=== PATIENT | female | born 1955 | race Caucasian/White ===

== ENCOUNTER 2020-05-08 08:25 | Outpatient (REF) | payer OTHER, SELFPAY ==
[2020-05-08 11:18] LABS: MANUAL DIFF FLAG NO
[2020-05-08 11:40] LABS: Basophils Percent Auto 0.4 % (0-2); Eosinophils Absolute Auto 0.1 X10*3/uL (0.0-0.4); Eosinophils Percent Auto 1.8 % (0-4); Hematocrit 41.3 % (37-47); Hemoglobin 13.2 g/dl (12.0-16.0); Imm Gran Abs Auto 0.01 X10*3/uL (0.00-0.03); Imm Gran Pct Auto 0.2 % (0.0-0.4); Lymphocytes Absolute Auto 1.4 X10*3/uL (1.2-4.9); Lymphocytes Percent Auto 26.9 % (20-40); Mean Corpuscular Hemoglobin 29.2 pg (27.0-33.0); Mean Corpuscular Volume 91.4 fL (80-98); Mean Platelet Volume 10.2 fL (9.4-12.3); Monocytes Absolute Auto 0.4 X10*3/uL (0.1-1.2); Monocytes Percent Auto 7.4 % (2-11); Neutrophils Absolute Auto 3.2 X10*3/uL (2.0-8.3); Neutrophils Percent Auto 63.3 % (45-73); Platelet Count 272 X10*3/uL (160-400); Red Blood Count 4.52 X10*6/uL (4.20-5.50); Red Cell Distribution Width 13.4 % (11.0-16.0)
[2020-05-08 12:03] LABS: Alanine Aminotransferase 96 U/L (0-31); Albumin Level 4.4 g/dL (3.5-5.0); Alkaline Phosphatase 127 U/L (39-117); Anion Gap 11 (12-20); Aspartate Amino Transferase 71 U/L (5-31); Blood Urea Nitrogen 15 mg/dL (9-16); Carbon Dioxide 30 mmol/L (22-29); Chloride 103 mmol/L (96-108); Cholesterol 183 mg/dL; Estimated Glomerular Filt Rate > 60; Glucose Fasting 106 mg/dL (60-99); HDL Cholesterol 67 mg/dL; LDL Cholesterol Calculated 104 mg/dl; Potassium 3.3 mmol/L (3.3-5.1); Sodium 141 mmol/L (135-145); Total Protein 7.3 g/dL (6.5-8.0); Triglycerides 63 mg/dL
[2020-05-08 12:18] LABS: Amphetamine Screen Urine Not Detected (Not Detect); Barbiturates, Urine Not Detected (Not Detect); Benzodiazepines Screen Urine Not Detected (Not Detect); Cannabinoid Screen Urine Not Detected (Not Detect); Cocaine Screen Urine Not Detected (Not Detect); Opiate Screen Urine POSITIVE (Not Detect); Phencyclidine Screen Urine Not Detected (Not Detect)
[2020-05-08 12:30] LABS: TSH reflex Free T4 1.07 uIU/mL (0.32-4.0)
[2020-05-09 08:20] LABS: HBS Num1 241.13 mIU/mL (0-7.99); HBc Num1 0.14 S/CO (0.00-0.79); HIV AB/AG Nonreactive (Nonreactive); HIV Num 1 0.07 S/CO (0.00-0.99); Hepatitis B Core Antibody Nonreactive (Nonreactive); ~Hepatitis B Surface Antibody REACTIVE (Nonreactive)
[2020-05-09 08:30] LABS: Syphilis Screen Nonreactive (Nonreactive)
[2020-05-09 08:58] LABS: HBsAGNum1 0.18 S/CO (0.00-0.99); Hepatitis B Surface Antigen Negative (Negative); ~HepC Num1 0.07 S/CO (0.00-0.79); ~Hepatitis C Antibody Nonreactive (Nonreactive)
[2020-05-09 22:57] LABS: C. trachomatis RNA TMA NOT DETECTED (NOT DETECTED); N. gonorrhoeae RNA TMA NOT DETECTED (NOT DETECTED)
[2020-05-10 03:41] LABS: Codeine, Ur 619 ng/mL (<50); Hydrocodone, Ur NEGATIVE ng/mL (<50); Hydromorphone, Ur 189 ng/mL (<50); Morphine, Ur >10000 ng/mL (<50); Norhydrocodone, Ur NEGATIVE ng/mL (<50); Noroxycodone, Ur NEGATIVE ng/mL (<50); Oxycodone, Ur NEGATIVE ng/mL (<50); Oxymorphone, Ur NEGATIVE ng/mL (<50)
== END 2020-05-08 08:26 | disposition home or self-care (01) ==
LOC: HO.WFDLDS 08:25
PROVIDERS: Visit Provider Family Medicine
DX: Z00.00 Encounter for general adult medical examination without abnormal findings (principal); Z11.3 Encounter for screening for infections with a predominantly sexual mode of transmission; Z11.4 Encounter for screening for human immunodeficiency virus [HIV]; F11.20 Opioid dependence, uncomplicated
CPT/HCPCS: 36415; 80053; 80061; 80307; 80364; 80365; 84443; 85025; 86704; 86706; 86780; 86803; 87340; 87389; 87491; 87591

== ENCOUNTER → 2020-05-29 09:33 | Outpatient (BNVA) | payer OTHER, SELFPAY | PROVIDERS: PCP Family Medicine; Visit Provider Internal Medicine | DX: F11.99 Opioid use, unspecified with unspecified opioid-induced disorder (principal); Z72.89 Other problems related to lifestyle | CPT/HCPCS: 80305 ==

== ENCOUNTER → 2020-06-06 10:06 | Outpatient (BNVA) | payer OTHER, SELFPAY | PROVIDERS: Visit Provider Internal Medicine ==

== ENCOUNTER → 2020-06-08 11:30 | Outpatient (BNVA) | payer OTHER, SELFPAY | PROVIDERS: Visit Provider Internal Medicine ==

== ENCOUNTER → 2020-06-12 09:41 | Outpatient (BNVA) | payer OTHER, SELFPAY | PROVIDERS: PCP Family Medicine; Visit Provider Internal Medicine | DX: Z51.81 Encounter for therapeutic drug level monitoring (principal) | CPT/HCPCS: 80305 ==

== ENCOUNTER → 2020-06-19 09:15 | Outpatient (BNVA) | payer OTHER, SELFPAY | PROVIDERS: PCP Family Medicine; Visit Provider Internal Medicine | DX: Z51.81 Encounter for therapeutic drug level monitoring (principal) | CPT/HCPCS: 80305 ==

== ENCOUNTER → 2020-06-26 09:41 | Outpatient (BNVA) | payer OTHER, SELFPAY | PROVIDERS: PCP Family Medicine; Visit Provider Internal Medicine | DX: F11.99 Opioid use, unspecified with unspecified opioid-induced disorder (principal) | CPT/HCPCS: 80305 ==

== ENCOUNTER → 2020-07-04 09:05 | Outpatient (BNVA) | payer OTHER, SELFPAY | PROVIDERS: PCP Family Medicine; Visit Provider Internal Medicine | DX: F11.99 Opioid use, unspecified with unspecified opioid-induced disorder (principal) | CPT/HCPCS: 80305 ==

== ENCOUNTER → 2020-07-11 09:03 | Outpatient (BNVA) | payer OTHER, SELFPAY | PROVIDERS: PCP Family Medicine; Visit Provider Internal Medicine | DX: Z51.81 Encounter for therapeutic drug level monitoring (principal) | CPT/HCPCS: 80305 ==

== ENCOUNTER → 2020-07-18 09:00 | Outpatient (BNVA) | payer OTHER, SELFPAY | PROVIDERS: PCP Family Medicine; Visit Provider Internal Medicine | DX: F11.99 Opioid use, unspecified with unspecified opioid-induced disorder (principal) | CPT/HCPCS: 80305 ==

== ENCOUNTER → 2020-07-25 09:04 | Outpatient (BNVA) | payer OTHER, SELFPAY | PROVIDERS: PCP Family Medicine; Visit Provider Internal Medicine | DX: F11.99 Opioid use, unspecified with unspecified opioid-induced disorder (principal) | CPT/HCPCS: 80305 ==

== ENCOUNTER 2020-08-02 08:59 | Outpatient (REF) | payer OTHER, SELFPAY ==
--- NOTE | ~2020-08-02 | MM_ITS ---
EXAMINATION: MM SCREENING DIGITAL BREAST TOMOSYNTHESIS, BILATERAL CLINICAL INFORMATION: Screening. Asymptomatic. The lifetime risk of breast cancer based on the Tyrer-Cuzick Model is 4.3%. COMPARISON: Mammography: August 31, 2018 and studies dating back to March 2011 TECHNIQUE: Digital breast tomosynthesis is performed in both the craniocaudal and mediolateral oblique views along with computer-aided detection (CAD). Synthesized 2D images are generated from the tomosynthesis. FINDINGS: The breasts are heterogeneously dense, which may obscure small masses (ACR BI-RADS breast composition Category c). There are no significant masses, abnormal calcifications, or other abnormalities. MM/MM tomosynthesis screening BI IMPRESSION: There are no significant changes from prior study. ASSESSMENT: BI-RADS 1: Negative RECOMMENDATION: Routine annual mammography screening. This patient's information was entered into a reminder system with a target due date for their next mammogram.
== END 2020-08-02 09:00 | disposition home or self-care (01) ==
LOC: HO.MAMMO 08:59
PROVIDERS: Visit Provider Family Medicine
DX: Z12.31 Encounter for screening mammogram for malignant neoplasm of breast (principal)
CPT/HCPCS: 77063; 77067

== ENCOUNTER → 2020-08-09 09:13 | Outpatient (BNVA) | payer OTHER, SELFPAY | PROVIDERS: PCP Family Medicine; Visit Provider Internal Medicine | DX: Z51.81 Encounter for therapeutic drug level monitoring (principal) | CPT/HCPCS: 80305 ==

== ENCOUNTER → 2020-08-28 09:05 | Outpatient (BNVA) | payer OTHER, SELFPAY | PROVIDERS: PCP Nurse Practitioner Family; Visit Provider Internal Medicine | DX: Z51.81 Encounter for therapeutic drug level monitoring (principal) | CPT/HCPCS: 80305 ==

== ENCOUNTER → 2020-09-17 09:44 | Outpatient (BNVA) | payer OTHER, SELFPAY | PROVIDERS: Visit Provider Internal Medicine | DX: F11.99 Opioid use, unspecified with unspecified opioid-induced disorder (principal) | CPT/HCPCS: 80305 ==

== ENCOUNTER 2020-10-15 11:01 | Outpatient (REF) | payer OTHER, SELFPAY ==
[2020-10-19 07:40] LABS: Fentanyl, Ur 299.3
[2020-10-19 07:43] LABS: Buprenorphine 18; Norbuprenorphine 72
[2020-10-19 07:44] LABS: Naloxone 79
== END 2020-10-15 11:02 | disposition home or self-care (01) ==
LOC: HO.LAB 11:01
PROVIDERS: Visit Provider Internal Medicine
DX: Z51.81 Encounter for therapeutic drug level monitoring (principal); F11.99 Opioid use, unspecified with unspecified opioid-induced disorder
CPT/HCPCS: 80305; 80348; 80354; 80362; 80364; 80365

== ENCOUNTER → 2020-11-06 09:50 | Outpatient (BNVA) | payer OTHER, SELFPAY | PROVIDERS: Visit Provider Internal Medicine | DX: Z51.81 Encounter for therapeutic drug level monitoring (principal); F11.99 Opioid use, unspecified with unspecified opioid-induced disorder | CPT/HCPCS: 80305 ==

== ENCOUNTER → 2020-11-13 10:27 | Outpatient (BNVA) | payer OTHER, SELFPAY | PROVIDERS: Visit Provider Internal Medicine | DX: Z51.81 Encounter for therapeutic drug level monitoring (principal) ==

== ENCOUNTER 2020-11-21 09:49 | Outpatient (REF) | payer OTHER, SELFPAY ==
[2020-11-21 11:54] LABS: Fentanyl, urine POSITIVE (Not Detect)
== END 2020-11-21 09:50 | disposition home or self-care (01) ==
LOC: HO.LAB 09:49
PROVIDERS: Visit Provider Internal Medicine
DX: F11.20 Opioid dependence, uncomplicated (principal)
CPT/HCPCS: 36415; 80305; 80307

== ENCOUNTER 2020-11-27 09:53 | Outpatient (REF) | payer OTHER, SELFPAY ==
[2020-11-29 08:57] LABS: Fentanyl, urine POSITIVE (Not Detect)
== END 2020-11-27 09:54 | disposition home or self-care (01) ==
LOC: HO.LAB 09:53
PROVIDERS: PCP Family Medicine; Visit Provider Internal Medicine
DX: Z51.81 Encounter for therapeutic drug level monitoring (principal); F11.99 Opioid use, unspecified with unspecified opioid-induced disorder; Z79.899 Other long term (current) drug therapy
CPT/HCPCS: 80305; 80307; 80348; 80362

== ENCOUNTER 2020-12-24 10:38 | Outpatient (REF) | payer OTHER, SELFPAY ==
[2020-12-24 17:48] LABS: Fentanyl, urine POSITIVE (Not Detect)
--- NOTE | 2021-01-09 10:55 | MHC.RECOVSUP ---
Recovery Support note: This technical document writer conducted a follow up call to check in on this patient at the request of [facility] staff. Patient reports she is having difficulty transitioning to Suboxone. Patient was in precipitated withdrawal at the time of the call. Encouraged patient to continue taking the Suboxone as prescribed and to not use heroin. Patient reports life stressors related to her work and health and states she hides her use from her family and she feels isolated. Patient reports she cannot go to detox due to family and work. Patient is open to being referred to a Lead Pharmacy Technician for ongoing support. Encouraged patient to contact [facility] for additional guidance on Suboxone initiation of needed.
== END 2020-12-24 10:39 | disposition home or self-care (01) ==
LOC: HO.LNP 10:38
PROVIDERS: Visit Provider Internal Medicine
DX: F11.99 Opioid use, unspecified with unspecified opioid-induced disorder (principal); Z51.81 Encounter for therapeutic drug level monitoring
CPT/HCPCS: 80305; 80307

== ENCOUNTER 2021-01-01 11:32 | Outpatient (REF) | payer OTHER, SELFPAY ==
[2021-01-01 13:25] LABS: Fentanyl, urine POSITIVE (Not Detect)
== END 2021-01-01 11:33 | disposition home or self-care (01) ==
LOC: HO.LAB 11:32
PROVIDERS: Visit Provider Internal Medicine
DX: F11.99 Opioid use, unspecified with unspecified opioid-induced disorder (principal); Z79.899 Other long term (current) drug therapy
CPT/HCPCS: 80305; 80307; 99212

== ENCOUNTER → 2021-01-07 10:56 | Outpatient (BNVA) | payer OTHER, SELFPAY | PROVIDERS: Visit Provider Internal Medicine | DX: Z51.81 Encounter for therapeutic drug level monitoring (principal); F11.90 Opioid use, unspecified, uncomplicated | CPT/HCPCS: 80305; 99212 ==

== ENCOUNTER 2021-05-23 09:03 | Outpatient (REF) | payer OTHER, SELFPAY ==
[2021-05-23 11:29] LABS: Hematocrit 41.7 % (37.0-47.0); Hemoglobin 13.3 g/dl (12.0-16.0); Mean Corpuscular HGB Conc 31.9 g/dl (31.0-35.0); Mean Corpuscular Hemoglobin 29.6 pg (27.0-33.0); Mean Corpuscular Volume 92.7 fL (80.0-98.0); Mean Platelet Volume 10.3 fL (9.4-12.3); Platelet Count 268 X10*3/uL (160-400); Red Cell Distribution Width 13.3 % (11.0-16.0); White Blood Count 4.6 X10*3/uL (4.8-10.8)
[2021-05-23 11:36] LABS: Alanine Aminotransferase 33 U/L (0-31); Albumin Level 4.4 g/dL (3.5-5.0); Alkaline Phosphatase 88 U/L (39-117); Anion Gap 14 (12-20); Aspartate Amino Transferase 28 U/L (5-31); Bilirubin Total 0.5 mg/dL (0.0-1.0); Blood Urea Nitrogen 11 mg/dL (9-16); Calcium 9.4 mg/dL (8.4-10.2); Carbon Dioxide 27 mmol/L (22-29); Chloride 103 mmol/L (96-108); Cholesterol 191 mg/dL; Estimated Glomerular Filt Rate > 60; Glucose Fasting 128 mg/dL (60-99); HDL Cholesterol 69 mg/dL; LDL Cholesterol Calculated 109 mg/dl; Potassium 3.3 mmol/L (3.3-5.1); Sodium 141 mmol/L (135-145); Total Protein 7.5 g/dL (6.5-8.0); Triglycerides 68 mg/dL
[2021-05-23 12:38] LABS: TSH reflex Free T4 1.23 uIU/mL (0.32-4.0)
[2021-05-23 15:00] LABS: Appearance Urine HAZY; Color Urine YELLOW; Glucose Urine UA NEG (NEG); Leukocyte Esterase Urine TRACE (NEG); Nitrite Urine NEG (NEG); Specific Gravity - Urine 1.015 (1.005-1.025); Urine Blood TRACE (NEG); Urine Ketones NEG (NEG); Urine Protein NEG (NEG-TRACE)
[2021-05-23 15:03] LABS: Amphetamine Screen Urine Not Detected (Not Detect); Barbiturates, Urine Not Detected (Not Detect); Benzodiazepines Screen Urine Not Detected (Not Detect); Cannabinoid Screen Urine Not Detected (Not Detect); Cocaine Screen Urine Not Detected (Not Detect); Fentanyl, urine POSITIVE (Not Detect); Opiate Screen Urine Not Detected (Not Detect); Phencyclidine Screen Urine Not Detected (Not Detect)
[2021-05-23 15:13] LABS: Bacteria Urine TRACE /LPF; Calcium Oxalate Crystals Urine TRACE /LPF; Squamous Epithelial Cell Urine 2+ /LPF; WBC Urine 0-2 /HPF (0-4)
== END 2021-05-23 09:04 | disposition home or self-care (01) ==
LOC: HO.WFDLDS 09:03
PROVIDERS: Visit Provider Hospitalist
DX: Z00.00 Encounter for general adult medical examination without abnormal findings (principal); F11.99 Opioid use, unspecified with unspecified opioid-induced disorder
CPT/HCPCS: 36415; 80053; 80061; 80307; 81001; 81003; 84443; 85027

== ENCOUNTER 2021-06-05 10:03 | Outpatient (REF) | payer OTHER, SELFPAY ==
[2021-06-05 19:10] LABS: Fentanyl, urine POSITIVE (Not Detect)
== END 2021-06-05 10:04 | disposition home or self-care (01) ==
LOC: HO.LNP 10:03
PROVIDERS: Visit Provider Internal Medicine
DX: F11.20 Opioid dependence, uncomplicated (principal)
CPT/HCPCS: 80305; 80307; 99212

== ENCOUNTER 2021-07-29 11:16 | Outpatient (REF) | payer OTHER, SELFPAY ==
[2021-07-29 12:01] LABS: Amphetamine Screen Urine Not Detected (Not Detect); Barbiturates, Urine Not Detected (Not Detect); Benzodiazepines Screen Urine Not Detected (Not Detect); Cannabinoid Screen Urine Not Detected (Not Detect); Cocaine Screen Urine Not Detected (Not Detect); Fentanyl, urine POSITIVE (Not Detect); Opiate Screen Urine POSITIVE (Not Detect); Phencyclidine Screen Urine Not Detected (Not Detect)
== END 2021-07-29 11:17 | disposition home or self-care (01) ==
LOC: HO.LNP 11:16
PROVIDERS: Visit Provider Hospitalist
DX: F11.20 Opioid dependence, uncomplicated (principal); Z91.14 Patient's other noncompliance with medication regimen
CPT/HCPCS: 80307

== ENCOUNTER 2021-08-06 08:09 | Outpatient (REF) | payer OTHER, SELFPAY | END 2021-08-06 08:10 | disposition home or self-care (01) | LOC: HO.MAMMO 08:09 | PROVIDERS: Visit Provider Family Medicine | DX: Z13.89 Encounter for screening for other disorder (principal) ==

== ENCOUNTER 2021-08-15 09:16 | Outpatient (REF) | payer OTHER, SELFPAY ==
--- NOTE | ~2021-08-15 | MM_ITS ---
EXAMINATION: MM SCREENING DIGITAL BREAST TOMOSYNTHESIS, BILATERAL CLINICAL INFORMATION: Screening. Asymptomatic. The lifetime risk of breast cancer based on the Tyrer-Cuzick Model is 5.6%. COMPARISON: Mammography: August 02, 2020 and studies dating back to March 20, 2011 TECHNIQUE: Digital breast tomosynthesis is performed in both the craniocaudal and mediolateral oblique views along with computer-aided detection (CAD). Synthesized 2D images are generated from the tomosynthesis. FINDINGS: The breasts are heterogeneously dense, which may obscure small masses (ACR BI-RADS breast composition Category c). There are no significant masses, abnormal calcifications, or other abnormalities. MM/MM tomosynthesis screening BI IMPRESSION: There are no significant changes from prior study. ASSESSMENT: BI-RADS 1: Negative RECOMMENDATION: Routine annual mammography screening. This patient's information was entered into a reminder system with a target due date for their next mammogram.
== END 2021-08-15 09:17 | disposition home or self-care (01) ==
LOC: HO.MAMMO 09:16
PROVIDERS: Visit Provider Family Medicine
DX: Z12.31 Encounter for screening mammogram for malignant neoplasm of breast (principal)
CPT/HCPCS: 77063; 77067

== ENCOUNTER → 2021-08-27 10:02 | Outpatient (BNVA) | payer OTHER, SELFPAY | PROVIDERS: PCP Hospitalist; Visit Provider Internal Medicine | DX: Z51.81 Encounter for therapeutic drug level monitoring (principal); F11.20 Opioid dependence, uncomplicated | CPT/HCPCS: 80305 ==

== ENCOUNTER → 2021-09-27 10:38 | Outpatient (BNVA) | payer OTHER, SELFPAY | PROVIDERS: Visit Provider Internal Medicine | DX: Z51.81 Encounter for therapeutic drug level monitoring (principal); Z79.899 Other long term (current) drug therapy | CPT/HCPCS: 80305 ==

== ENCOUNTER → 2021-10-29 10:35 | Outpatient (BNVA) | payer OTHER, SELFPAY | PROVIDERS: PCP Hospitalist; Visit Provider Nurse Practitioner Psychiatric/Mental Health | DX: F11.20 Opioid dependence, uncomplicated (principal); Z51.81 Encounter for therapeutic drug level monitoring; Z79.899 Other long term (current) drug therapy | CPT/HCPCS: 80305 ==

== ENCOUNTER → 2021-11-13 10:53 | Outpatient (BNVA) | payer OTHER, SELFPAY | PROVIDERS: PCP Hospitalist; Visit Provider Nurse Practitioner Psychiatric/Mental Health | DX: F11.20 Opioid dependence, uncomplicated (principal); Z51.81 Encounter for therapeutic drug level monitoring; Z79.899 Other long term (current) drug therapy | CPT/HCPCS: 80305 ==

== ENCOUNTER 2022-10-19 16:58 | Emergency (ER) | payer OTHER, SELFPAY ==
--- NOTE | ~2022-10-19 | CT_ITS ---
EXAMINATION: CT ABDOMEN AND PELVIS WITH CONTRAST CLINICAL INFORMATION: Abdominal pain. COMPARISON: CT abdomen/pelvis 04/13/2006. TECHNIQUE: Multidetector volumetric images were obtained from the superior aspect of the liver through the pubic symphysis following administration 85 mL of Omnipaque 350 intravenous contrast. Sagittal and coronal reformatted images were obtained on the technologist's workstation. Oral contrast: No This CT examination was performed using dose optimization techniques as appropriate, variously including the following: *Automated exposure control *Adjustment of mA and/or kV according to patient size (this includes techniques or standardized protocols for targeted exams where dose is matched to indication/reason for exam; i.e. extremities or head) *Use of iterative reconstruction technique DLP: 607 mGy-cm FINDINGS: LUNG BASES: Bilateral platelike opacities favored to represent subsegmental atelectases or scarring. Scattered cystic changes, similar compared to 2006. LIVER, GALLBLADDER, AND BILIARY TREE: Increased size of heterogeneous liver lesion in the right hepatic lobe measuring 1.7 cm image 11 series 3, previously 0.6 cm on 04/13/2006. The liver is normal in size, shape and attenuation. Moderate to severe intra and extrahepatic biliary ductal dilatation is not significantly changed compared to 04/13/2006. The common bile duct measures up to 1.5 cm in diameter. PANCREAS: No peripancreatic free fluid or fat stranding. No main ductal dilatation. SPLEEN: Unremarkable. ADRENAL GLANDS: Unremarkable. KIDNEYS AND URETERS: The kidneys are normal in size, shape, and attenuation. No hydronephrosis, hydroureter, or calculi seen. No perinephric stranding. BLADDER: Unremarkable. GASTROINTESTINAL TRACT: The stomach and the small bowel are nondilated. Appendix is not identified, however there are no regional inflammatory changes to suspect acute appendicitis. Large amount of stool throughout the colon. No significant pericolonic fat stranding/free fluid. No evidence of bowel obstruction. ABDOMINAL WALL: Small fat-containing umbilical hernias. LYMPH NODES: No lymphadenopathy. VASCULAR: Normal caliber abdominal aorta. PELVIC VISCERA: Normal CT appearance of the uterus and adnexa. OSSEOUS STRUCTURES: Degenerative changes of the spine with prominent endplate sclerosis and associated vacuum disc phenomena at L4-L5. Increased sclerosis of the pubic symphysis suggesting osteitis pubis. No acute or aggressive appearing osseous abnormalities. CT/CT abdomen pelvis w IV con IMPRESSION: 1. Large amount of stool in the colon suggesting constipation. 2. Increased size of a heterogeneous liver lesion in the right hepatic lobe. Recommend further evaluation with an MR of the abdomen with and without intravenous contrast. 3. Moderate to severe intra and extrahepatic biliary ductal dilatation is not significantly changed compared to 04/13/2006.
[2022-10-19 17:36] VITALS: BP 143/94; PULSE 65; RESP 18; TEMP 36; O2SAT 98; BMI 30.2
[2022-10-19 18:27] LABS: MANUAL DIFF FLAG NO
[2022-10-19 18:35] LABS: Appearance Urine Clear; Color Urine Yellow; Glucose Urine UA Negative (Negative); Leukocyte Esterase Urine Trace (Negative); Nitrite Urine Negative (Negative); PH 6.5 (5.0-9.0); Specific Gravity - Urine <= 1.005 (1.005-1.025); UMIC TRIGGER UACC YES; Urine Blood Negative (Negative); Urine Ketones Negative (Negative); Urine Protein Negative (Neg-Trace)
[2022-10-19 18:54] LABS: Bacteria Urine None Seen (None Seen); Hyaline Casts Urine 0-2 /LPF (0-2); RBC Urine 0-2 /HPF (0-2); Squamous Epithelial Cell Urine 0-2 /HPF (0-2); WBC Urine 0-5 /HPF (0-5)
[2022-10-19 18:58] LABS: Basophils Percent Auto 0.4 % (0-2); Eosinophils Percent Auto 0.4 % (0-4); Imm Gran Abs Auto 0.04 X10*3/uL (0.00-0.03); Imm Gran Pct Auto 0.9 % (0.0-0.4); Lymphocytes Percent Auto 21.7 % (20-40); Mean Corpuscular HGB Conc 31.7 g/dl (31.0-35.0); Mean Corpuscular Hemoglobin 29.5 pg (27.0-33.0); Mean Corpuscular Volume 93.2 fL (80.0-98.0); Mean Platelet Volume 9.5 fL (9.4-12.3); Monocytes Absolute Auto 0.3 X10*3/uL (0.1-1.2); Monocytes Percent Auto 7.1 % (2-11); Neutrophils Absolute Auto 3.2 x10*3/uL (2.0-8.3); Neutrophils Percent Auto 69.5 % (45-73); Platelet Count 263 X10*3/uL (160-400); Red Cell Distribution Width 13.2 % (11.0-16.0); White Blood Count 4.7 X10*3/uL (4.8-10.8)
[2022-10-19 19:09] LABS: Alanine Aminotransferase 29 U/L (0-31); Albumin Level 4.5 g/dL (3.5-5.0); Alkaline Phosphatase 124 U/L (39-117); Anion Gap 14 (12-20); Aspartate Amino Transferase 23 U/L (5-31); Bilirubin Total 0.3 mg/dL (0.0-1.0); Blood Urea Nitrogen 9 mg/dL (9-16); Calcium 9.5 mg/dL (8.4-10.2); Carbon Dioxide 31 mmol/L (22-29); Chloride 103 mmol/L (96-108); Creatinine Clr Calc Pharmacy 79.1; Estimated Glomerular Filt Rate > 60; Glucose Random 94 mg/dL (60-115); Lipase 37 U/L (8-78); Potassium 3.7 mmol/L (3.3-5.1); Sodium 144 mmol/L (135-145); Total Protein 7.8 g/dL (6.5-8.0)
[2022-10-19 20:00] VITALS: BP 158/85; PULSE 77; RESP 18; TEMP 36.8; O2SAT 97
--- NOTE | 2022-10-19 20:55 | ED_ITS ---
HPI - General Adult General Chief complaint: Abdominal Pain Stated complaint: abd pain Time Seen by Provider: 10/19/22 20:48 Source: patient Mode of arrival: ambulatory Limitations: no limitations History of Present Illness HPI narrative: 66 y/o F with PMHx of constipation, opioid use disorder, depression and hypot hyroidism presents with 3 weeks of lower abdominal pain. She reports that the pain has been dull, non-radiating and constant. It seems to worsen when she moves and nothing has improved her pain. She denies fevers, chills, chest pain, shortness of breath, nausea, vomiting, constipation or diarrhea. She has been having normal bowel movements and had a BM this morning. She has been postmenopausal since age 52 and denies any vaginal bleeding or discharge. She had her gallbladder previously removed. Onset (ago): week(s) Location: abdomen Radiation: non-radiation Quality: aching and dull Relieving factors: none Exacerbating factors: movement Associated symptoms: denies other symptoms Treatments prior to arrival: none Related Data Previous Rx's Medication Instructions Recorded blood pressure test kit-medium #1 ea 05/23/21 clonidine HCl 0.1 mg tablet 0.1 mg PO TID 7 days #21 tabs 06/05/21 hydroxyzine pamoate 25 mg capsule 25 mg PO TID PRN itching 7 days 06/05/21 (Vistaril) #21 caps buprenorphine 8 mg-naloxone 2 mg 2 film sublingual DAILY 14 days 10/11/21 sublingual film (Suboxone) #28 ea buprenorphine 2 mg-naloxone 0.5 mg 1 film sublingual BID #10 ea 10/29/21 sublingual film (Suboxone) naloxone 4 mg/actuation nasal 4 mg intranasal Q2M PRN opioid 10/29/21 spray (Narcan) overdose #2 ea sertraline 25 mg tablet 50 mg PO DAILY 1 month #60 tabs 06/02/22 levothyroxine 75 mcg tablet 75 mcg PO QAM #90 tabs 09/22/22 Allergies Allergy/AdvReac Type Severity Reaction Status Date / Time No Known Allergies Allergy Mild NKA Verified 10/19/22 17:36 Review of Systems Constitutional: Constitutional: Reports no additional constitutional complaints, Denies chills, Denies fever(s) and Denies night sweats Eyes: Eyes: Reports no additional eye complaints, Denies blurry vision, Denies change in vision, Denies diplopia, Denies eye discharge, Denies loss of vision and Denies eye pain ENT: Denies dizziness Cardiovascular: Cardiovascular: Reports no additional cardiovascular complaints, Denies chest pain, Denies lightheadedness, Denies Loss of Co nsciousness and Denies dyspnea Respiratory: Respiratory: Reports no additional respiratory complaints and Denies dyspnea Gastrointestinal: Gastrointestinal: Reports no additional gastrointestinal complaints, Reports abdominal pain, Denies melena, Denies hematochezia, Denies change in bowel habits and Denies change in stool character Genitourinary: Genitourinary: Denies hematuria, Denies urinary frequency, Denies dysuria, Denies urinary incontinence, Denies urinary hesitancy and Denies urinary urgency Musculoskeletal: Musculoskeletal: Reports no additional musculoskeletal compla ints, Denies numbness and Denies tingling Neurologic: Denies dizziness, Denies loss of vision, Denies numbness and Denies tingling Psychiatric: Psychiatric: Reports no additional psychiatric complaints Endocrine: Endocrine: Reports no additional endocrine complaints Hematologic/Lymphatic: Hematologic/Lymphatic: Reports no additional hematologic/lymphatic complaints Allergic/Immunologic: Allergic/Immunologic: Reports no additional allergic/immunologic complaints [facility] Past Medical History Attestation statement: The following information was validated with the patient. Source: old records reviewed and nursing notes reviewed Medical History (Updated 10/20/22 @ 00:51 by BREANNA Man) Alcohol use Heroin addiction Normal physical exam Opioid use disorder Overuse of medication Surgical History History of bladder repair surgery History of cholecystectomy Family History Family History Other Substance use disorder Social History Social History Housing: House Alcohol intake: never Patient Tobacco Use Status: Never used Tobacco e-Cigarette/Vaping Use: Never Used Second Hand Smoke Exposure: No Advance Directives: No Advance Directives Information Provided: Yes service: No Current occupational status: employed Current occupation: [employer] Current occupational exposures/hazards: No Cognitive needs: No Hearing needs: No Vision needs: No Physical Exam ED Vital Signs: Vital Signs - 24 hr 10/19/22 17:36 10/19/22 20:00 10/19/22 21:08 Temperature 96.8 F 98.3 F 98.2 F Pulse Rate 65 77 66 Respiratory Rate 18 18 16 Blood Pressure 143/94 H 158/85 H 131/76 Pulse Oximetry 98 97 95 Oxygen Delivery Method Room Air Room Air Room Air BMI result Body Mass Index 30.2 Const General: cooperative, no acute distress, alert and awake Nutritional Appearance: well nourished Orientation/consciousness: patient oriented x3 Limitations: no limitations HENMT Head: Yes normal to inspection and Yes atraumatic Ears: hearing grossly normal bilaterally and external ears normal General nose exam: Normal external nose present, no nasal discharge noted and no epistaxis Face and sinus: Yes normal facial exam, No abrasion and No laceration Mouth: Normal oral and palatal mucosa present, no drooling and no muffled voice Eyes General: appearance normal, both eyes and all related structures Periorbital: periorbital findings normal Eyelids: Yes eyelids normal Conjunctivae: conjunctivae normal Pupils: Equal, round and reactive pupils present EOM: EOMs intact bilaterally Neck Neck: Yes normal visual inspection, Yes full ROM and Yes no lymphadenopathy Chest Chest palpation & inspection: normal inspection of the chest Resp Effort & Inspection: normal respiratory effort and able to speak in complete se ntences Auscultation: clear to auscultation bilaterally Cardio Rate: regular rate Rhythm: regular rhythm GI Inspection: Yes normal to inspection Palpation (GI): Soft to palpation, not firm, nontender and no guarding Neuro General: patient oriented x3 and moves all extremities Cranial nerves: Yes Equal, round and reactive pupils present Cognition (Neuro): normal cognition Motor exam (neuro): 5/5 motor strength present throughout Sensory Exam: Normal double simultaneous stimulation for sensation Coordination: [id number] test normal Extrem General: Yes normal to inspection, Yes full ROM and Yes capillary refill normal Psych Appearance: grossly normal Mental Status: mental status grossly normal Affect: normal affect Attitude: cooperative Thought process: Normal thought process present Thought content: Normal thought content present Insight: Good insight present (Psych) Medications Administered Discontinued Medications Generic Name Dose Route Start Last Admin Trade Name Freq PRN Reason Stop Dose Admin Iohexol 85 ml 10/19/22 23:25 10/19/22 23:26 Iohexol 350 Mg/Ml 100 Ml Infus..Btl IV 10/19/22 23:26 85 ml ONCE ONE Administration Medical Decision Making Medical Decision Making [facility] Narrative: Patient is a 66 year old assigned female at with a history of hypothyroidism, depression, and opiate use / misuse, presenting to the emergency department today with abdominal pain. Patient's physical exam was unremarkable. Patient's blood work was unremarkable. Patient's urine showed no acute process. Patient's abdomen/pelvis CT showed constipation and an increase heterogeneous liver lesion in the right hepatic lobe. I explained my physical exam findings as well as all test results to the patient. I answered all questions asked by the patient. I stressed the importance of the patient taking her medication as prescribed. I stressed the importance of the patient following up with her primary care provider and a GI provider. I stressed the importance of the patient returning to the emergency department immediately if her symptoms were to worsen or if she were to develop any dizziness, shortness of breath, difficulty breathing, chest pain, blurry vision, loss of vision, nausea, vomiting, abdominal pain, fever, chills, back pain, or any other complaints. Patient verbalized agreement and understanding with this treatment plan and discharge. Differential Diagnosis Differential Diagnoses: The differential diagnosis associated with the presentation includes Constipation Abdominal pain Admission/Observation Consideration of admission/observation: Escalation of care including admission/observation considered Patient would have been admitted to the hospital had her work up had any findings where hospital admission was appropriate and her clinical presentation warranted hospital admission. Lab Data MDM Lab Attestation statement: I reviewed the patient's lab results. My interpretation of these studies and their corresponding values is that they are grossly normal. 10/19/22 18:19 10/19/22 18:19 Labs: Lab Results 10/19/22 10/19/22 10/19/22 Range/Units 18:19 18:19 18:19 WBC 4.7 L (4.8-10.8) X10*3/uL RBC 4.40 (4.20-5.50) X10*6/uL Hgb 13.0 (12.0-16.0) g/dl Hct 41.0 (37.0-47.0) % MCV 93.2 (80.0-98.0) fL MCH 29.5 (27.0-33.0) pg MCHC 31.7 (31.0-35.0) g/dl RDW 13.2 (11.0-16.0) % Plt Count 263 (160-400) X10*3/uL MPV 9.5 (9.4-12.3) fL Immature Gran % (Auto) 0.9 H (0.0-0.4) % Neut % (Auto) 69.5 (45-73) % Lymph % (Auto) 21.7 (20-40) % Rolette % (Auto) 7.1 (2-11) % Eos % (Auto) 0.4 (0-4) % Baso % (Auto) 0.4 (0-2) % Lymph # (Auto) 1.0 L (1.2-4.9) X10*3/uL Rolette # (Auto) 0.3 (0.1-1.2) X10*3/uL Eos # (Auto) 0.0 (0.0-0.4) X10*3/uL Baso # (Auto) 0.0 (0.0-0.2) X10*3/uL Abs Immat Gran (auto) 0.04 H (0.00-0.03) X10*3/uL Absolute Neuts (auto) 3.2 (2.0-8.3) x10*3/uL Absolute Nucleated RBC 0.000 (0.0-0.012) X10*3/uL Nucleated RBC % (auto) 0.0 (0.0-0.2) /100WBC Sodium 144 (135-145) mmol/L Potassium 3.7 (3.3-5.1) mmol/L Chloride 103 (96-108) mmol/L Carbon Dioxide 31 H (22-29) mmol/L Anion Gap 14 (12-20) BUN 9 (9-16) mg/dL Creatinine 0.68 (0.5-1.4) mg/dL Estim Creat Clear Calc 79.1 Estimated GFR > 60 Random Glucose 94 (60-115) mg/dL Calcium 9.5 (8.4-10.2) mg/dL Total Bilirubin 0.3 (0.0-1.0) mg/dL AST 23 (5-31) U/L ALT 29 (0-31) U/L Alkaline Phosphatase 124 H (39-117) U/L Total Protein 7.8 (6.5-8.0) g/dL Albumin 4.5 (3.5-5.0) g/dL Lipase 37 (8-78) U/L Urine Color Yellow Urine Appearance Clear Urine pH 6.5 (5.0-9.0) Ur Specific [place] <= 1.005 (1.005-1.025) Urine Protein Negative (Neg-Trace) mg/dL Urine Glucose (UA) Negative (Negative) mg/dL Urine Ketones Negative (Negative) mg/dL Urine Blood Negative (Negative) Urine Nitrite Negative (Negative) Ur Leukocyte Esterase Trace H (Negative) Urine RBC 0-2 (0-2) /HPF Urine WBC 0-5 (0-5) /HPF Ur Squamous Epith Cells 0-2 (0-2) /HPF Urine Bacteria None Seen (None Seen) Hyaline Casts 0-2 (0-2) /LPF Independent Interpretation I performed an independent interpretation of an: CT Scan Interpretation: My interpretation is in agreement with the radiologist's impression of this imaging study. EXAMINATION: CT ABDOMEN AND PELVIS WITH CONTRAST? CLINICAL INFORMATION: Abdominal pain.? COMPARISON: CT abdomen/pelvis 04/13/2006. TECHNIQUE: Multidetector volumetric images were obtained from the superior aspect of the liver through the pubic symphysis following administration 85 mL of Omnipaque 350 intravenous contrast. Sagittal and coronal reformatted images were obtained on the technologist's workstation.? Oral contrast: No This CT examination was performed using dose optimization techniques as appropriate, variously including the following: *Automated exposure control *Adjustment of mA and/or kV according to patient size (this includes techniques or standardized protocols for targeted exams where dose is matched to indication/reason for exam; i.e. extremities or head) *Use of iterative reconstruction technique DLP: 607 mGy-cm FINDINGS: LUNG BASES: Bilateral platelike opacities favored to represent subsegmental atelectases or scarring. Scattered cystic changes, similar compared to 2007.? LIVER, GALLBLADDER, AND BILIARY TREE: Increased size of heterogeneous liver lesion in the right hepatic lobe measuring 1.7 cm image 11 series 3, previously 0.6 cm on 04/13/2006. The liver is normal in size, shape and attenuation. Moderate to severe intra and extrahepatic biliary ductal dilatation is not significantly changed compared to 04/13/2006. The common bile duct measures up to 1.5 cm in diameter. PANCREAS: No peripancreatic free fluid or fat stranding. No main ductal dilatation.? SPLEEN: Unremarkable.? ADRENAL GLANDS: Unremarkable.? KIDNEYS AND URETERS: The kidneys are normal in size, shape, and attenuation. No hydronephrosis, hydroureter, or calculi seen. No perinephric stranding. ? BLADDER: Unremarkable.? GASTROINTESTINAL TRACT: The stomach and the small bowel are nondilated. Appendix is not identified, however there are no regional inflammatory changes to suspect acute appendicitis. Large amount of stool throughout the colon. No significant pericolonic fat stranding/free fluid. No evidence of bowel obstruction. ABDOMINAL WALL: Small fat-containing umbilical hernias.? LYMPH NODES: No lymphadenopathy. VASCULAR: Normal caliber abdominal aorta. PELVIC VISCERA: Normal CT appearance of the uterus and adnexa.? OSSEOUS STRUCTURES: Degenerative changes of the spine with prominent endplate sclerosis and associated vacuum disc phenomena at L4-L5. Increased sclerosis of the pubic symphysis suggesting osteitis pubis. No acute or aggressive appearing osseous abnormalities.? CT/CT abdomen pelvis w IV con IMPRESSION: 1.? Large amount of stool in the colon suggesting constipation. 2.? Increased size of a heterogeneous liver lesion in the right hepatic lobe. Recommend further evaluation with an MR of the abdomen with and without intravenous contrast. 3.? Moderate to severe intra and extrahepatic biliary ductal dilatation is not significantly changed compared to 04/13/2006. Dictated By: Chelsey Nj Signed By: Electronically signed by Chelsey?Ondina 10/20/22 0034 Radiology Impression Discussion of test interpretation with radiology: I have reviewed the radiologist's reading. Chronic Conditions Patient?s care impacted by: Other (hypothyroidism, constipation, opiate use) Discharge Plan Discharge Clinical Impression: Constipation Patient Disposition: Home, Self-Care Instructions: Constipation (DC) Additional Instructions: Follow up with your primary care provider. Follow up with a GI specialist to monitor your liver lesions. Return to the emergency department immediately if your symptoms worsen or if you develop any dizziness, shortness of breath, difficulty breathing, chest pain, blurry vision, loss of vision, nausea, vomiting, abdominal pain, fever, chills, back pain, or any other complaints. Prescriptions: No Action sertraline 25 mg tablet 50 mg PO DAILY 30 Days Qty: 60 0RF levothyroxine 75 mcg tablet 75 mcg PO QAM Qty: 90 0RF (DME) blood pressure test kit-medium Kit See Rx Instructions .Route Qty: 1 0RF Rx Instructions: to monitor bp twice a day and if she feels off buprenorphine-naloxone [Suboxone] 8-2 mg film 2 film sublingual DAILY 14 Days Qty: 28 0RF Rx Instructions: place 1 strip/tab under (each) side of tongue buprenorphine-naloxone [Suboxone] 2-0.5 mg film 1 film sublingual BID Qty: 10 0RF naloxone [Narcan] 4 mg/actuation spray,non-aerosol 4 mg intranasal Q2M PRN (Reason: opioid overdose) Qty: 2 0RF Rx Instructions: spray 1 dose into ONE nostril; alternate nostrils w each dose until help arrives clonidine HCl 0.1 mg tablet 0.1 mg PO TID 7 Days Qty: 21 0RF hydroxyzine pamoate [Vistaril] 25 mg capsule 25 mg PO TID PRN (Reason: itching) 7 Days Qty: 21 0RF Referrals: [facility] [Provider Group] (Call to establish and follow up with a GI specialist.) Blanka Renner NP [Primary Care Provider] - Print Language: Persian
[2022-10-19 21:08] VITALS: BP 131/76; PULSE 66; RESP 16; TEMP 36.8; O2SAT 95
[2022-10-19] MEDS: iohexoL 350 MG/ML 100 ML INFUS..BTL 85 ML IV (23:26)
--- NOTE | 2022-10-20 00:56 | PC.NURSE ---
Reviewed discharge instruction with pt, pt verbalized understanding, no sign of distress. Will continue to monitor.
== END 2022-10-20 00:58 | disposition home or self-care (01) ==
PROVIDERS: Emergency Provider Internal Medicine; PCP Hospitalist
DX: K59.00 Constipation, unspecified (principal); R10.2 Pelvic and perineal pain; Z79.899 Other long term (current) drug therapy
CPT/HCPCS: 36415; 74177; 80053; 81001; 83690; 85025; 99283; Q9967

== ENCOUNTER → 2022-10-30 08:00 | Outpatient (BNV) | payer OTHER, SELFPAY | PROVIDERS: PCP Hospitalist; Visit Provider Radiology Diagnostic Radiology | DX: Z12.31 Encounter for screening mammogram for malignant neoplasm of breast (principal) | CPT/HCPCS: 77063; 77067 ==

== ENCOUNTER 2022-10-30 08:03 | Outpatient (REF) | payer OTHER, SELFPAY | END 2022-10-30 08:04 | disposition home or self-care (01) | LOC: HO.MAMMO 08:03 | PROVIDERS: PCP Hospitalist; Visit Provider Hospitalist | DX: Z12.31 Encounter for screening mammogram for malignant neoplasm of breast (principal) | CPT/HCPCS: 77063; 77067 ==

== ENCOUNTER 2022-11-14 07:56 | Outpatient (AMB) | payer OTHER, SELFPAY ==
[2022-11-14 08:04] VITALS: BP 162/88; PULSE 86; O2SAT 98; BMI 30.2
--- NOTE | 2022-11-14 08:04 | A.OFFPC_ITS ---
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 [facility] Allergies No Known Allergies Allergy (Mild, Verified 11/14/22 08:22) NKA Medication List - Last Reconciled 11/14/22 by DELORES Esquivel blood pressure test kit-medium to monitor bp twice a day and if she feels off levothyroxine 75 mcg PO QAM naloxone 4 mg/actuation (Narcan) 4 mg intranasal Q2M PRN sertraline 50 mg (2 x 25 mg) PO DAILY 1 month Tobacco use date assessed: 11/14/22 Fall risk assessment: No Falls in past year Last assessed Fall Risk: 11/14/22 Dental Screening Dental Screen Date: 11/14/22 Did you have a dental visit in the last 12 months?: Yes Did you have a dental problem in the last 6 months where you did not have access to dental care?: No Was dental information given to patient?: Patient has dentist HPI HPI Comments History of Present Illness Details 67-year-old patient presents today for [facility] of care from [facility]. Past medical history significant for anxiety, depression, and dependence opioid use disorder as well as alcohol use. Patient reports that she was previously established at that comprehensive care clinic and was doing well on Suboxone until 2 years ago where she had a few tests in her life and she started using heroin daily again. Patient would like new referral to reestablish care with [facility], referral entered. Urine drug screen ordered and patient aware with as. Review of the notes patient was seen in the emergency room on 10/19/22 for abdominal pain, abdominal CT showed constipation and increased heterogenous liver lesion in the right hepatic lobe. Recommended MRI of the abdomen with and without contrast. Patient was advised to follow-up with Gastroenterology. MRI the abdomen with and without contrast ordered urgently. Patient requesting open MRI as she gets anxious about having test done as well as going in an enclosed s pace. Referral entered to gastroenterology. [facility] Medical History (Updated 11/14/22 @ 08:40 by DELORES Esquivel) Overuse of medication Normal physical exam Alcohol use Opioid use disorder Heroin addiction Surgical History History of cholecystectomy History of bladder repair surgery Family History Other Substance use disorder Social History (Updated 11/14/22 @ 08:27 by DELORES Esquivel) Housing: House Alcohol intake: never Patient Tobacco Use Status: Never used Tobacco e-Cigarette/Vaping Use: Never Used Second Hand Smoke Exposure: No Substance Use Type: Heroin service: No Current occupational status: employed Current occupation: [employer] Current occupational exposures/hazards: No Cognitive needs: No Hearing needs: No Vision needs: No Questionnaire PHQ-9 Over the last 2 weeks, how often have you been bothered by any of the following problems? 1. Little interest or pleasure in doing things: not at all 2. Feeling down, depressed, or hopeless: nearly every day 3. Trouble falling or staying asleep, or sleeping too much: nearly every day 4. Feeling tired or having little energy: several days 5. Poor appetite or overeating: not at all 6. Feeling bad about yourself - or that you are a failure or have let yourself or your family down: not at all 7. Trouble concentrating on things, such as reading the newspaper or watching television: several days 8. Moving or speaking so slowly that other people could have noticed. Or the opposite - being so fidgety or restless that you have been moving around a lot more than usual: not at all 9. Thoughts that you would be better off or of hurting yourself in some way: not at all Total score: 8 Depression Screening Interpretation: Positive (would consider increase in zoloft with pt) 06629 - PHQ-9 Billing: Yes Source: Developed by Drs. Gary Sy, Margie Mcmullen, Umer Stone and colleagues, with an educational rashel from [employer]. Thrive Questionnaire Date Thrive assessed: 11/14/22 I am a: Patient What is your living situation today?: I have a steady place to live Within the past 12 months, did the food you bought not last and you didn't have the money to get more?: Never true Within the past 12 months, did you worry whether your food would run out before you got money to buy more?: Never true Do you have trouble paying for medicines?: No Do you have trouble getting transportation to medical appointments?: No Do you have trouble paying your heating and electricity bill?: No Do you have trouble taking care of your child, family member or friend?: No Do you have trouble with day-to-day activities such as bathing, preparing meals, shopping, managing finances, etc.?: No Are you currently unemployed and looking for a job?: No Are you interested in more education?: No Currently or been in a relationship where the following occur: no concerns reported AUDIT C Alcohol Use Questionnaire (AUDIT-C) 1. How often do you have a drink containing alcohol?: Never 3. How often do you have six or more drinks on one occasion?: Never Total Score: 0 Score Reviewed/Action Taken: No HERIBERTO-7 AMB Questionnaire HERIBERTO-7 Date HERIBERTO - 7 assessed: 11/14/22 Feeling nervous, anxious, or on edge: 2 = More than half the days Not being able to stop or control worryin = Nearly every day Worrying too much about different things: 3 = Nearly every day Trouble relaxin = Nearly every day Becoming easily annoyed or irritable: 0 = Not at all Feeling afraid as if something awful might happen: 2 = More than half the days Source: Developed by Drs. Gary Sy, Margie Mcmullen, Umer Stone and colleagues, with an educational rashel from [employer]. HERIBERTO-7 Assessment Billing HERIBERTO-7 Assessment Tool: HERIBERTO-7 Assessment 31109 Review of Systems Const Denies chills, Denies fatigue, Denies fever(s) and Denies poor appetite Eyes Denies no additional complaints ENT Reports Normal hearing present Card Denies chest pain, Denies syncope, Denies rapid heart rate and Denies dyspnea Resp Denies cough and Denies dyspnea GI Denies change in stool character, Denies constipation, Denies diarrhea, Denies nausea and Denies vomiting Denies urinary frequency, Denies dysuria and Denies urinary urgency Neuro Reports Normal hearing present, Denies confusion and Denies syncope Psych Denies confusion Endo Denies fatigue Physical exam (Primary Care) Vital Signs: Last Vital Signs Pulse 86 11/14/22 08:04 BP 162/88 H 11/14/22 08:04 Pulse Ox 98 11/14/22 08:04 Oxygen Delivery Method Room Air 11/14/22 08:04 BMI result Body Mass Index 30.2 Tobacco/Smoking Status: Tobacco use Status Tobacco use date assessed 11/14/22 11/14/22 08:10 Patient Tobacco Use Status Never used Tobacco 11/14/22 08:10 e-Cigarette/Vaping Use Never Used 11/14/22 08:10 PHQ-9: PHQ-9 Score PHQ-9: Total score 8 11/14/22 08:10 Depression Screening Interpretation: Positive (would consider increase in zoloft with pt) Thrive Assessment: Date of Thrive Assessment Date Thrive assessed 11/14/22 11/14/22 08:10 Currently or been in a relationship where the following occur: no concerns reported Const General: No confusion Orientation/consciousness: No confusion HENMT Head: Yes normocephalic and Yes atraumatic Eyes Conjunctivae: conjunctivae normal Chest Chest palpation & inspection: normal inspection of the chest Resp Effort & Inspection: normal respiratory effort Auscultation: clear to auscultation bilaterally, no crackles, no rhonchi and no wheezes Cardio Rate: regular rate Rhythm: regular rhythm Heart sounds: S1 normal heart sound present and S2 normal heart sound present GI Inspection: Yes normal to inspection General: Yes no CVA tenderness Back/Spine/Pelvis Back: no CVA tenderness Neuro General: No confusion Cranial nerves: Yes Normal hearing present Extrem General: No edema Assessment and Plan Assessment & Plan (1) Liver lesion, right lobe: Code(s): K76.9 - Liver disease, unspecified Plan: MRI of the abdomen ordered with and without contrast. Referral entered to gastroenterology. (2) Fentanyl dependence: Comment: She has been doing well with MAT program. Code(s): F11.20 - Opioid dependence, uncomplicated Plan: [facility]. Patient strongly advised to stop. (3) Mixed anxiety and depressive disorder: Code(s): F41.8 - Other specified anxiety disorders Plan: Refill sent on sertraline 50 mg daily. Plan Follow-up in 2 months. Orders: Orders Complete Blood Count Auto Diff Today Z13.0 - Encounter for screening for diseases of the blood and blood-forming organs and certain disorders involving the immune mechanism Comprehensive [place]. Panel Fast Today F11.20 - Opioid dependence, uncomplicated Lipid Panel Today Z13.220 - Encounter for screening for lipoid disorders TSH reflex Free T4 Today Z13.29 - Encounter for screening for other suspected endocrine disorder Hepatitis A,B,C Profile Today F11.20 - Opioid dependence, uncomplicated MR abdomen wo/w con Today K76.9 - Liver disease, unspecified Drug Screen Urine Today F11.20 - Opioid dependence, uncomplicated Referrals Gastroenterology Referral K76.9 - Liver disease, unspecified Addiction Medicine Referral F11.20 - Opioid dependence, uncomplicated, F11.99 - Opioid use, unspecified with unspecified opioid-induced disorder Medications: Refilled sertraline 50 mg (2 x 25 mg) PO DAILY 1 month 60 tabs 0RF F41.8 - Other specified anxiety disorders levothyroxine 75 mcg PO QAM 90 tabs 0RF Coding Level of Care Code New Pt Level 4 (60225) Diagnoses Liver lesion, right lobe K76.9 Fentanyl dependence F11.20 Mixed anxiety and depressive disorder F41.8 Additional Codes HERIBERTO-7 Assessment Billing - HERIBERTO-7 Assessment Tool: HERIBERTO-7 Assessment 36228 ([id number])
== END 2022-11-14 08:38 | disposition home or self-care (01) ==
PROVIDERS: PCP Hospitalist; Visit Provider Nurse Practitioner Family
DX: K76.9 Liver disease, unspecified (principal); F11.20 Opioid dependence, uncomplicated; F41.8 Other specified anxiety disorders
CPT/HCPCS: 99214

== ENCOUNTER 2022-12-09 09:27 | Outpatient (AMB) | payer OTHER, SELFPAY ==
--- NOTE | 2022-12-09 09:30 | A.OFFVIS_ITS ---
Intake Vital Signs 12/09/22 09:31 Height 5 ft 2 in Weight 167 lb 8.821 oz BMI 30.6 BP 188/84 H Blood Pressure Location Lt brachial Position Sitting Pulse 99 Intake Visit Reasons: Liver disease, unspecified Intake Note: Keiry presents in the office as a new patient liver disease. CC: She is having pains in her stomach. She has issues with her stomach and she denies diarrhea. 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 Pt was seen in ER in Oct for abd pain and severe constipation. CT Abd/pel with IV contrast showed 1.7 cm lesion in R lobe of liver along with significant biliary tree dilation. She has been seen by her PCP after the ER visit and an MRI is pending. Review of labs show intermittent elevation in LFTs including ALP. Pt does not have any abd pain, N,V, rashes, distention, pruritus. No fam hx of liver disease in FDRs. She does use recreational drugs (heroin/fentanyl) and last use was this morning. Snorts. Does not report IVDU. No current hx of etOH use. 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 Current occupational exposures/hazards: No Cognitive needs: No Hearing needs: No Vision needs: No Review of Systems Const All systems reviewed & are unremarkable except as noted in HPI and below Physical Exam Vital Signs: Last Vital Signs Pulse 99 12/09/22 09:31 BP 188/84 H 12/09/22 09:31 BMI result Body Mass Index 30.6 Gen appear: NAD HEENT: nonicteric, no cervical lymphadenopathy Chest: CTA CVS: Regular S1/S2 Abd: soft, nontender, nondistended, bowel sounds + Ext: no peripheral edema Neuro: A/Ox3, noted to move all extremities spontaneously Psych: interacting appropriately Results Reviewed Results Reviewed: CT Abd/pel Increased size of heterogeneous liver lesion in the right hepatic lobe measuring 1.7 cm image 11 series 3, previously 0.6 cm on 04/13/2006. The liver is normal in size, shape and attenuation. Moderate to severe intra and extrahepatic biliary ductal dilatation is not significantly changed compared to 04/13/2006. The common bile duct measures up to 1.5 cm in diameter. Assessment & Plan Assessment & Plan (1) Elevated alkaline phosphatase level: Code(s): R74.8 - Abnormal levels of other serum enzymes (2) Liver lesion, right lobe: Code(s): K76.9 - Liver disease, unspecified (3) Dilated bile duct: Code(s): K83.8 - Other specified diseases of biliary tract Plan The presence of lesion since 2006 somewhat argues against malignant lesion however since it has grown and is heterogenous in appearance will need furhter evaluation. Pt unable to tolerate MRI due to claustrophobia. Urgent referral for OPEN MRI coordinated. This will also evaluate for abnormal biliary tree/PSC siria in the setting of elevated ALP. Labs ordered as below including hep serologies, AIH, PSC, PBC, iron overload etc. Follow up in 4 weeks Orders: Orders Hepatitis B Core Antibody Today R74.8 - Abnormal levels of other serum enzymes HIV Ab/Ag Today R74.8 - Abnormal levels of other serum enzymes IRON PROFILE Today R74.8 - Abnormal levels of other serum enzymes Gamma Glutamyl Transpeptidase Today R74.8 - Abnormal levels of other serum enzymes Phosphatidylethanol, Blood Today R74.8 - Abnormal levels of other serum enzymes MAXIMILIANO Reflex Titer and Pattern Today R74.8 - Abnormal levels of other serum enzymes Liver Kidney Microsomal Ab Today R74.8 - Abnormal levels of other serum enzymes Hepatitis A IgG Today R74.8 - Abnormal levels of other serum enzymes Hepatitis B Surface Antibody Today R74.8 - Abnormal levels of other serum enzymes Hepatitis B Surface Antigen Today R74.8 - Abnormal levels of other serum enzymes Hepatitis C Antibody Reflex Today K74.60 - Unspecified cirrhosis of liver, R74.8 - Abnormal levels of other serum enzymes Ferritin Today R74.8 - Abnormal levels of other serum enzymes Liver Panel Today R74.8 - Abnormal levels of other serum enzymes Mitochondrial Antibody Today R74.8 - Abnormal levels of other serum enzymes Alkaline Phosphatase Isoenzyme Today R74.8 - Abnormal levels of other serum enzymes Smooth Muscle Antibody Today R74.8 - Abnormal levels of other serum enzymes Coding Level of Care Code New Pt Level 4 (09438) Diagnoses Elevated alkaline phosphatase level R74.8 Liver lesion, right lobe K76.9 Dilated bile duct K83.8
[2022-12-09 09:31] VITALS: BP 188/84; PULSE 99; BMI 30.6
== END 2022-12-09 10:19 | disposition home or self-care (01) ==
PROVIDERS: PCP Nurse Practitioner Family; Visit Provider Internal Medicine
DX: R74.8 Abnormal levels of other serum enzymes (principal); K76.9 Liver disease, unspecified; K83.8 Other specified diseases of biliary tract
CPT/HCPCS: 99204

== ENCOUNTER → 2022-12-09 09:27 | Outpatient (BNVA) | payer OTHER, SELFPAY | PROVIDERS: PCP Nurse Practitioner Family; Visit Provider Internal Medicine ==

== ENCOUNTER 2023-01-12 10:53 | Outpatient (REF) | payer OTHER, SELFPAY ==
[2023-01-12 12:33] LABS: Alanine Aminotransferase 45 U/L (0-31); Albumin Level 4.4 g/dL (3.5-5.0); Alkaline Phosphatase 123 U/L (39-117); Aspartate Amino Transferase 48 U/L (5-31); Bilirubin Direct 0.2 mg/dL (0.0-0.5); Bilirubin Total 0.5 mg/dL (0.0-1.0); Gamma Glutamyl Transpeptidase 219 U/L (7-33); Iron 84 mcg/dL (30-160); Percent Iron Saturation 34 % (15-50); Total Iron Binding Capacity 249 mcg/dL (228-428); Total Protein 7.6 g/dL (6.5-8.0); Unsaturated Iron Binding 165 ug/dL
[2023-01-12 12:37] LABS: Ferritin 122 ng/mL (10-250)
[2023-01-13 05:42] LABS: Hepatitis A Antibody IgG REACTIVE (Nonreactive); ~Hepatitis A Antibody IgG 11.37 S/CO (0.00-0.99)
[2023-01-13 06:19] LABS: HBS Num1 237.74 mIU/mL (0-7.99); HBc Num1 0.17 S/CO (0.00-0.79); HBsAGNum1 0.26 S/CO (0.00-0.99); HIV AB/AG Nonreactive (Nonreactive); HIV Num 1 0.06 S/CO (0.00-0.99); Hepatitis B Core Antibody Nonreactive (Nonreactive); Hepatitis B Surface Antigen Negative (Negative); ~HepC Num1 0.08 S/CO (0.00-0.79); ~Hepatitis B Surface Antibody REACTIVE (Nonreactive); ~Hepatitis C Antibody Nonreactive (Nonreactive)
[2023-01-15 12:44] LABS: Mitochondrial Antibodies NEGATIVE (NEGATIVE)
[2023-01-15 16:23] LABS: Liver Kidney Microsomal Ab <=20.0 U (<=20.0)
[2023-01-17 23:03] LABS: Smooth Muscle Antibody <20 U (<20)
[2023-01-18 14:53] LABS: Anti Nuclear Antibody Pattern Nuclear, Homogeneous; Anti Nuclear Antibody Screen POSITIVE (NEGATIVE)
[2023-01-19 10:37] LABS: Phosphatidylethanol 16:0-18:1 NEGATIVE; Phosphatidylethanol 16:0-18:2 NEGATIVE
== END 2023-01-12 10:54 | disposition home or self-care (01) ==
LOC: HO.LAB 10:53
PROVIDERS: Absent Provider Nurse Practitioner Family; PCP Nurse Practitioner Family; Visit Provider Internal Medicine
DX: Z11.4 Encounter for screening for human immunodeficiency virus [HIV] (principal); R74.8 Abnormal levels of other serum enzymes; K74.60 Unspecified cirrhosis of liver
CPT/HCPCS: 36415; 80076; 80321; 82728; 82977; 83540; 84080; 86015; 86038; 86039; 86376; 86381; 86704; 86706; 86708; 86803; 87340; 87389

== ENCOUNTER 2023-01-19 13:18 | Outpatient (REF) | payer OTHER, SELFPAY ==
[2023-01-21 10:19] LABS: Carbohydrate Antigen 19-9 26 U/mL (<34)
[2023-01-26 07:34] LABS: Other Ref Test - Misc 20.8
== END 2023-01-19 13:19 | disposition home or self-care (01) ==
LOC: HO.LAB 13:18
PROVIDERS: PCP Nurse Practitioner Family; Visit Provider Internal Medicine
DX: K83.8 Other specified diseases of biliary tract (principal); R74.8 Abnormal levels of other serum enzymes; K76.9 Liver disease, unspecified; F11.20 Opioid dependence, uncomplicated
CPT/HCPCS: 82378; 82787; 86301; 99212

== ENCOUNTER 2023-01-19 13:18 | Outpatient (AMB) | payer OTHER, SELFPAY ==
--- NOTE | 2023-01-19 13:20 | A.OFFVIS_ITS ---
Intake Vital Signs 3 01/19/23 13:21 Height 5 ft 2 in Weight 158 lb 11.725 oz BMI 29.0 BP 148/81 H Blood Pressure Location Lt brachial Position Sitting Pulse 101 H Intake Visit Reasons: f/u labs Intake Note: Keiry presents in the office as a follow up to her labs that were ordered. CC: She states that she is so nervous of her results. She feels like her stomach is always in pain. Her just went to penitentiary so she is in a lot of stress. She states that she has not been eating. She has depression and she is dealing with constipation. She states she has to take it out manually. She states that she had to pull some out today and usually it is hard. Sometimes it is soft. Allergies No Known Allergies Allergy (Mild, Verified 01/19/23 13:23) NKA HPI HPI Comments 2 History of Present Illness0 Details This is a 67y.o F with PMH of polysubstance use disorder, who has been referred by her PCP for liver lesion. 12/09/22: Pt was seen in ER in Oct for abd pain and severe constipation. CT Abd/pel with IV contrast showed 1.7 cm lesion in R lobe of liver along with significant biliary tree dilation. She has been seen by her PCP after the ER visit and an MRI is pending. Review of labs show intermittent elevation in LFTs including ALP. Pt does not have any abd pain, N,V, rashes, distention, pruritus. No fam hx of liver disease in FDRs. She does use recreational drugs (heroin/fentanyl) and last use was this morning. Snorts. Does not report IVDU. No current hx of etOH use. 01/19/23: Here by herself. Quite anxious today, again reports taking heroin this morning for her nerves but states her family is not aware of her hx of drug use. MRI report from 01/14 reviewed which shows diffuse dilatation of biliary tree suspicious for distal stricture. Imaging done through [facility] and images/MRCP not available for personal review. Hx of CCY in 1981. Abd pain is unchanged, also reports weight loss but attributes that to recent incarceration of her that has led to significant stress and anxiety and reports not eating well. 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 Current occupational exposures/hazards: No Cognitive needs: No Hearing needs: No Vision needs: No Review of Systems Const All systems reviewed & are unremarkable except as noted in HPI and below Physical Exam Vital Signs: Last Vital Signs Pulse 101 H 01/19/23 13:21 BP 148/81 H 01/19/23 13:21 BMI result Body Mass Index 29.0 Gen appear: NAD HEENT: nonicteric, no cervical lymphadenopathy Chest: CTA CVS: Regular S1/S2 Abd: soft, nontender, nondistended, bowel sounds + Ext: no peripheral edema Neuro: A/Ox3, noted to move all extremities spontaneously Psych: interacting appropriately Results Reviewed Results Reviewed: 2 Laboratory Tests 10/19/22 01/12/23 18:19 11:10 GGT 219 H AST 23 ALT 29 Alkaline Phosphatase 124 H 01/14/23: MRI liver protocol: Assessment & Plan Assessment & Plan (1) Dilated bile duct: Code(s): K83.8 - Other specified diseases of biliary tract (2) Elevated alkaline phosphatase level: Code(s): R74.8 - Abnormal levels of other serum enzymes (3) Fentanyl dependence: Code(s): F11.20 - Opioid dependence, uncomplicated (4) Liver lesion, right lobe: Code(s): K76.9 - Liver disease, unspecified Plan 1. CBD Dilation: Differentials include non-specific dilation in the context of s/p CCY and ongoing opiate use, papillary stenosis, ampulla adenoma/mass, small distal CBD stricture etc. Plan: - Check cholangio tumor markers - Pt will also be referred to biliary colleague for discussion re indication for ERCP/spy 2. R lobe liver lesion: This is noted to be a benign cyst on liver protocol MRI. Plan: - No further surveillance needed for this benign appearing cyst Can follow back with me after seeing Dr Ross as above Orders: Orders 2 Carbohydrate Antigen 19-9 01/19/23 K83.8 - Other specified diseases of biliary tract, R74.8 - Abnormal levels of other serum enzymes Other Ref Test - Misc 01/19/23 K83.8 - Other specified diseases of biliary tract, R74.8 - Abnormal levels of other serum enzymes Carcinoembryonic Antigen 01/19/23 K83.8 - Other specified diseases of biliary tract, R74.8 - Abnormal levels of other serum enzymes Patient Instructions: You were noted to have: 1- abnormal liver function test, swollen bile ducts and a spot on your liver for which the MRI done. 2- the MRI shows that the spot on the liver is a benign cyst which does not need any follow up 3- the dilated/swollen bile ducts however do need to be evaluated. This can sometimes be from a narrowing/stricture of the duct causing swelling behind the narrowing and you may potentially a need a procedure called ERCP to investigate this. ERCP is a specialized endoscopy to evaluate the bile ducts through a camera which is inserted through the mouth. As per your request, you are being set up for a follow up with the Project Specialist who does this procedure to go over this in detail. 4- we have also ordered further blood work for you for the above Coding Level of Care Code Est Pt Level 4 (24988) Diagnoses Dilated bile duct K83.8 Elevated alkaline phosphatase level R74.8 Fentanyl dependence F11.20 Liver lesion, right lobe K76.9
[2023-01-19 13:21] VITALS: BP 148/81; PULSE 101; BMI 29.0
== END 2023-01-19 14:02 | disposition home or self-care (01) ==
PROVIDERS: PCP Nurse Practitioner Family; Visit Provider Internal Medicine
DX: K83.8 Other specified diseases of biliary tract (principal); R74.8 Abnormal levels of other serum enzymes; F11.20 Opioid dependence, uncomplicated; K76.9 Liver disease, unspecified
CPT/HCPCS: 99214

== ENCOUNTER → 2023-03-06 07:56 | Outpatient (BNVA) | payer OTHER, SELFPAY | PROVIDERS: PCP Nurse Practitioner Family; Visit Provider Internal Medicine Gastroenterology ==

== ENCOUNTER → 2023-03-06 07:56 | Outpatient (AMB) | payer OTHER, SELFPAY ==
--- NOTE | 2023-03-06 07:56 | A.OFFVIS_ITS ---
Intake Intake Visit Reasons: CBD Obstruction Per Piotr Intake Note: Keiry presents as a video call today - she is just anxious and has questions regarding the procedure that she is going to have. 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 MRI was done and the liver lesion was a benign cyst mention was made of dilated CBD, possible distal stricture she has mild elevated AST, ALT, alk phos--rept alk phos was nml Of note she had CT 10/19/22 and radiologist mentioned that biliary tree appearances were unchanged from CT 2006 INTERIM: she is scared of going to sleep she is using heroin, snorts 5 yrs she denies RUQ pain she has normal urine she has constipation and manually disimpacts --she takes she wants to hold off on any procedures until she stops heroin Hep C was neg 01/2023 but was ab test not PCR A/P: 1/ CBD dilation seems to be chronic prob ably 2/2 to CCY and opiate use, Ct with bile duct unchanged in appearance 2/ constipation prob from ehroin use PLAN: 1/ Hold on procedures given her concerns with heroin and she wants to go to rehab 2/ If she elects to have procedure then it will be toss up between EUS and ERCP but would have to refer to [facility] for the EUS--will recheck labs and trend, incl Hep C PCR 3/ to call me back if RUq pain, or jaund ice etc 4/ movantik for constipation [facility] Medical History Overuse of medication Normal physical exam Alcohol use Opioid use disorder Heroin addiction Surgical History Hx of colonoscopy History of cholecystectomy History of bladder repair surgery Family History Maternal Aunt Colon cancer Other Substance use disorder Social History Housing: House Alcohol intake: never Patient Tobacco Use Status: Never used Tobacco e-Cigarette/Vaping Use: Never Used Second Hand Smoke Exposure: No Substance Use Type: Heroin service: No Current occupational status: employed 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 for the EUS--will recheck labs and trend, incl Hep C PCR 3/ to call me back if RUq pain, or jaundice etc Telehealth Telehealth Location of provider rendering services: practice address Location of patient: address on file Patient Identification confirmed using: Name, : Yes Telehealth method: voice only (videon not working) Patient verbally consented to treatment: Yes Patient verbally consented to billing insurance company: Yes Patient informed of any privacy concerns related to visit: Yes Minutes spent on Phone/Video with Pt.: 10 Coding Level of Care Code Tele Est Pt Level 3 (03750) Diagnoses Dilated bile duct K83.8
== END ==
LOC: HO.HGI 07:56
PROVIDERS: PCP Nurse Practitioner Family; Visit Provider Internal Medicine Gastroenterology
DX: K83.8 Other specified diseases of biliary tract (principal)
CPT/HCPCS: 99212

== ENCOUNTER 2023-06-25 16:25 | Outpatient (AMB) | payer OTHER, SELFPAY ==
[2023-06-25 16:32] VITALS: BP 160/84; BMI 30.2
--- NOTE | 2023-06-25 16:32 | A.OFFPC_ITS ---
Vital Signs 06/25/23 16:32 Height 5 ft 2 in Weight 165 lb BMI 30.2 BP 160/84 H Blood Pressure Location Lt brachial Position Sitting Intake Visit Reasons: Transfer care Intake Note: Patient here transferring of care Inspector Balance Wheel Motion Required: No Accompanied by: Self / Same As Patient Allergies No Known Allergies Allergy (Mild, Verified 06/25/23 16:52) NKA Medication List - Last Reconciled 06/25/23 by Lucy Fletcher MD blood pressure test kit-medium to monitor bp twice a day and if she feels off levothyroxine 75 mcg PO QAM naloxone 4 mg/actuation (Narcan) 4 mg intranasal Q2M PRN sertraline 50 mg (2 x 25 mg) PO DAILY 1 month Tobacco use date assessed: 06/25/23 Fall risk assessment: No Falls in past year Last assessed Fall Risk: 06/25/23 Dental Screening Dental Screen Date: 06/25/23 Did you have a dental visit in the last 12 months?: Yes Did you have a dental problem in the last 6 months where you did not have access to dental care?: No Was dental information given to patient?: Patient has dentist HPI HPI Comments History of Present Illness Details This is a 67-year-old female with hypothyroidism and opioid use disor karen that comes today to establish care. TSH will be order. She has opioid use disorder and was in addiction medicine and would like to restart it. She also has elevated blood pressure today. Blood pressure will be recheck in 3 weeks by nurse. She has mild major depression and anxiety that has improved with sertraline. Denies any chest pain or shortness a breath. [facility] Medical History (Updated 06/26/23 @ 10:32 by Lucy Fletcher MD) Overuse of medication Normal physical exam Alcohol use Opioid use disorder Heroin addiction Surgical History Hx of colonoscopy History of cholecystectomy History of bladder repair surgery Family History Maternal Aunt Colon cancer Other Substance use disorder Social History Housing: House Alcohol intake: never Patient Tobacco Use Status: Never used Tobacco e-Cigarette/Vaping Use: Never Used Second Hand Smoke Exposure: No Substance Use Type: Heroin service: No Current occupational status: employed 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 1. Little interest or pleasure in doing things: not at all 2. Feeling down, depressed, or hopeless: not at all 3. Trouble falling or staying asleep, or sleeping too much: nearly every day 4. Feeling tired or having little energy: several days 5. Poor appetite or overeating: not at all 6. Feeling bad about yourself - or that you are a failure or have let yourself or your family down: not at all 7. Trouble concentrating on things, such as reading the newspaper or watching television: several days 8. Moving or speaking so slowly that other people could have noticed. Or the opposite - being so fidgety or restless that you have been moving around a lot more than usual: not at all 9. Thoughts that you would be better off or of hurting yourself in some way: not at all Total score: 5 Depression Screening Interpretation: Positive (would consider increase in zoloft with pt) Depression Screening Done: Yes 91356 - PHQ-9 Billing: Yes Source: Developed by Drs. Gary Sy, Margie Mcmullen, Umer Stone and colleagues, with an educational rashel from [employer]. Thrive Questionnaire Date Thrive assessed: 06/25/23 I am a: Patient What is your living situation today?: I have a steady place to live Within the past 12 months, did the food you bought not last and you didn't have the money to get more?: Never true Within the past 12 months, did you worry whether your food would run out before you got money to buy more?: Never true Do you have trouble paying for medicines?: No Do you have trouble getting transportation to medical appointments?: No Do you have trouble paying your heating and electricity bill?: No Do you have trouble taking care of your child, family member or friend?: No Do you have trouble with day-to-day activities such as bathing, preparing meals, shopping, managing finances, etc.?: No Are you currently unemployed and looking for a job?: No Are you interested in more education?: No Please select the resources that you would like help with: None Currently or been in a relationship where the following occur: no concerns reported THRIVE Score: 0 AUDIT C Alcohol Use Questionnaire (AUDIT-C) 1. How often do you have a drink containing alcohol?: Never Total Score: 0 Score Reviewed/Action Taken: No HERIBERTO-7 AMB Questionnaire HERIBERTO-7 Date HERIBERTO - 7 assessed: 06/25/23 Feeling nervous, anxious, or on edge: 2 = More than half the days Not being able to stop or control worryin = Nearly every day Worrying too much about different things: 3 = Nearly every day Trouble relaxin = Nearly every day Becoming easily annoyed or irritable: 0 = Not at all Feeling afraid as if something awful might happen: 2 = More than half the days Source: Developed by Drs. Gary Sy, Margie Mcmullen, Umer Stone and colleagues, with an educational rashel from [employer]. HERIBERTO-7 Assessment Billing HERIBERTO-7 Assessment Tool: HERIBERTO-7 Assessment 62787 Review of Systems Const All systems reviewed & are unremarkable except as noted in HPI and below Eyes Reports no additional complaints, Denies change in vision and Denies other visual disturbances Card Denies chest pain at rest, Denies chest pain with activity, Denies edema, Denies irregular heart rhythm, Denies claudication, Denies dyspnea, Denies dyspnea on exertion, Denies orthopnea, Denies paroxysmal nocturnal dyspnea and Denies slow heart rate Resp Denies cough, Denies dyspnea and Denies dyspnea on exertion Physical exam (Primary Care) Vital Signs: Last Vital Signs BP 160/84 H 06/25/23 16:32 BMI result Body Mass Index 30.2 Tobacco/Smoking Status: Tobacco use Status Tobacco use date assessed 06/25/23 06/25/23 16:37 Patient Tobacco Use Status Never used Tobacco 06/25/23 16:37 e-Cigarette/Vaping Use Never Used 06/25/23 16:37 PHQ-9: PHQ-9 Score PHQ-9: Total score 5 06/25/23 16:55 Depression Screening Interpretation: Positive (would consider increase in zoloft with pt) Thrive Assessment: Date of Thrive Assessment Date Thrive assessed 06/25/23 06/25/23 16:37 Currently or been in a relationship where the following occur: no concerns reported Resp Effort & Inspection: normal respiratory effort Auscultation: clear to auscultation bilaterally Cardio Jugular venous distension: no JVD Rate: regular rate Rhythm: regular rhythm Heart sounds: S1 normal heart sound present and S2 normal heart sound present Extrem General: Yes full ROM Assessment and Plan Assessment & Plan (1) Opioid use disorder: Code(s): F11.99 - Opioid use, unspecified with unspecified opioid-induced disorder Plan: Referred to addiction Medicine. (2) Hypothyroidism: Code(s): E03.9 - Hypothyroidism, unspecified Plan: Continue levothyroxine. Monitor TSH. (3) Mild major depression: Code(s): F32.0 - Major depressive disorder, single episode, mild Plan: Continue sertraline. (4) HERIBERTO (generalized anxiety disorder): Code(s): F41.1 - Generalized anxiety disorder Plan: Continue sertraline. Orders: Orders Thyroid Stimulating Hormone 06/25/23 E03.9 - Hypothyroidism, unspecified Referrals Open Access Screening Colonoscopy Referral Z12.11 - Encounter for screening for malignant neoplasm of colon Addiction Medicine Referral F11.99 - Opioid use, unspecified with unspecified opioid-induced disorder Medications: Refilled sertraline 50 mg (2 x 25 mg) PO DAILY 60 tabs 1RF 1 month F41.8 - Other specified anxiety disorders Coding Level of Care Code Est Pt Level 4 (58681) Diagnoses Opioid use disorder F11.99 Hypothyroidism E03.9 Mild major depression F32.0 HERIBERTO (generalized anxiety disorder) F41.1 Additional Codes HERIBERTO-7 Assessment Billing - HERIBERTO-7 Assessment Tool: HERIBERTO-7 Assessment 09425 ([id number]) Time Spent (min) 22
== END 2023-06-25 17:11 | disposition home or self-care (01) ==
PROVIDERS: PCP Nurse Practitioner Family; Visit Provider Internal Medicine
DX: E03.9 Hypothyroidism, unspecified (principal); F11.99 Opioid use, unspecified with unspecified opioid-induced disorder; F32.0 Major depressive disorder, single episode, mild; F41.1 Generalized anxiety disorder
CPT/HCPCS: 99214